=== PATIENT | female | born 2000 | race Hispanic/Latino ===

== ENCOUNTER → 2025-01-24 15:27 | Outpatient (CLI) | payer OTHER, SELFPAY ==
[2025-01-24 16:42] LABS: Add Manual Diff / Slide Review NO; Hematocrit 34.4 % (36-46); Hemoglobin 11.8 g/dL (12.0-16.0); Lymphocytes Absolute Auto 1600 /uL (1100-4500); Mean Corpuscular HGB Conc 34.4 % (30-36); Mean Corpuscular Hemoglobin 28.9 PG (26-34); Mean Corpuscular Volume 84.1 fL (80-100); Platelet Count 262 X10^3/uL (150-400)
[2025-01-24 16:48] LABS: Natera Collection Specimen Collected
[2025-01-25 15:45] LABS: Hepatitis B Surface Antigen NEGATIVE s/c (NEGATIVE)
[2025-01-25 16:01] LABS: HIV 1 & 2 Ab/Ag 4th Gen Combo NEGATIVE (NEGATIVE); Hep C Virus Ab w/Reflex Quant NEGATIVE s/c (NEGATIVE)
== END ==
LOC: LAB 15:28
PROVIDERS: Referring Provider Obstetrics & Gynecology; Visit Provider Obstetrics & Gynecology
DX: Z34.81 Encounter for supervision of other normal pregnancy, first trimester (principal); Z3A.11 11 weeks gestation of pregnancy
CPT/HCPCS: 36415; 80055; 86787; 86803; 86850; 86900; 86901; 87086; 87389

== ENCOUNTER → 2025-02-21 08:13 | Outpatient (CLI) | payer OTHER, SELFPAY ==
[2025-02-24 14:36] LABS: Gest Age on Col Date 15.1 weeks (.); OSBR Risk 1IN 10000 (.)
[2025-02-25 07:39] LABS: PDF SEE SCANNED RESULTS
== END ==
PROVIDERS: Visit Provider Obstetrics & Gynecology
DX: Z34.82 Encounter for supervision of other normal pregnancy, second trimester (principal); Z36.0 Encounter for antenatal screening for chromosomal anomalies; R82.998 Other abnormal findings in urine
CPT/HCPCS: 36415; 82105; 87086

== ENCOUNTER → 2025-03-19 11:02 | Outpatient (CLI) | payer OTHER, SELFPAY ==
--- NOTE | 2025-03-19 11:03 | DI.US.S_ITS ---
PROCEDURE: US OB >= 14 WEEKS FETUS INDICATIONS: 20 weeks anatomy scan OUTSIDE/PRIOR DATING DATA: Working MEG is 08/14/2025 TECHNIQUE: Real-time scanning was performed of the fetus, with image documentation and biometric measurements. COMPARISON: [facility], [place], OB <= 14 WEEKS FETUS, 01/24/2025, 15:14. FINDINGS: General: A single living intrauterine gestation is present. Presentation: Oblique. Placenta: Placental position is posterior , without previa. Possible uterine fibroid is seen versus succenturiate lobe Amniotic fluid index: 10.6 cm, normal range is 5-24 cm. Single deepest vertical pocket is 3.8 cm. heart rate: 155 beats per minute. Maternal cervical canal: 4.5 cm long. Normal lower limit is 2.5 cm. biometrics: Biparietal diameter: 4.3 cm 18 weeks and 6 days Head circumference: 15.2 cm 18 weeks and 2 days Abdominal circumference: 13.1 cm, 18 weeks and 5 days Femur length: 2.7 cm 18 weeks and 1 day Clinically estimated gestational age: 18 weeks and 6 days Composite gestational age from present scan: 18 weeks and 4 days Estimated weight and percentile: 239 g, 22% Anatomic survey: Neuro: Ventricles are non-dilated at less than 10 mm. Cisterna magna is normal at 3-11 mm. Cerebellum is normal in size and morphology. Nuchal skin fold: Normal at less than 6 mm between 14-21 weeks gestational age. Face: Nose and lips, facial profile are normal. Spine: Not well seen Heart: Not well seen Diaphragm: Diaphragm is intact. Stomach: Left-sided stomach is present. Kidneys: No hydronephrosis. Normal is less than 5 mm in 2nd trimester, less than 7 mm in 3rd trimester. Cord: 3-vessel cord has orthotopic insertion. Bladder: Normal in size. Extremities: All 4 extremities identified. IMPRESSION: Limited early anatomy scan. Intrauterine gestation seen with cardiac motion. EFW at 22%, within normal limits. Normal SHARON. Spine and heart were not well seen. Possible uterine fibroid is seen versus succenturiate lobe Short interval follow-up recommended. Dictated by: Micah Silverman M.D. on 03/19/2025 at 13:12 Approved by: Micah Silverman M.D. on 03/19/2025 at 13:17
== END ==
PROVIDERS: Referring Provider Obstetrics & Gynecology; Visit Provider Obstetrics & Gynecology
DX: Z36.0 Encounter for antenatal screening for chromosomal anomalies (principal); Z3A.18 18 weeks gestation of pregnancy
CPT/HCPCS: 76811